=== PATIENT | male | born 1965 | race Two or more races ===

== ENCOUNTER 2020-09-19 15:20 | Emergency (ER) | payer MEDICARE ==
[2020-09-19] MEDS ORDERED: NORMAL SALINE 1000 ML 1,000 ML IV ONE ×2 (16:40→18:02)
[2020-09-19 18:19] LABS: ALBUMIN 4.4 g/dL (3.5-5.0); ALKALINE PHOSPHATASE 83 U/L (38-126); ANION GAP 15 (5-19); ASPARTATE AMINO TRANSFERASE 28 U/L (17-59); BILIRUBIN,DIRECT 0.3 mg/dL (0.0-0.4); BILIRUBIN,TOTAL 0.6 mg/dL (0.2-1.3); BLOOD UREA NITROGEN 17 mg/dL (7-20); CALCIUM 9.6 mg/dL (8.4-10.2); CARBON DIOXIDE 23 mmol/L (22-30); CHLORIDE 99 mmol/L (98-107); GLUCOSE 279 mg/dL (75-110); POTASSIUM 4.1 mmol/L (3.6-5.0); TOTAL PROTEIN 7.6 g/dL (6.3-8.2)
[2020-09-19 18:20] LABS: ACETAMINOPHEN < 10 ug/mL (10-30); ALCOHOL < 10 mg/dL (NONE DETECTED); SALICYLATE < 1.0 mg/dL (2.0-20.0)
[2020-09-19 18:26] LABS: HEMATOCRIT 45.8 % (37.9-51.0); HEMOGLOBIN 15.7 g/dL (13.5-17.0); MEAN CORPUSCULAR HEMOGLOBIN 28.6 pg (27.0-33.4); MEAN CORPUSCULAR HGB CONC 34.3 g/dL (32.0-36.0); MEAN CORPUSCULAR VOLUME 84 fl (80-97); PLATELET COUNT 353 10^3/uL (150-450); RED BLOOD COUNT 5.49 10^6/uL (4.35-5.55); RED CELL DISTRIBUTION WIDTH 13.9 % (11.5-14.0)
[2020-09-19 18:42] LABS: WHITE BLOOD COUNT 30.2 10^3/uL (4.0-10.5)
[2020-09-19 18:46] LABS: ABSOLUTE LYMPHOCYTES# (MANUAL) 2.1 10^3/uL (0.5-4.7); ABSOLUTE MONOCYTES # (MANUAL) 0.6 10^3/uL (0.1-1.4); BASOPHILS % (MANUAL) 0 % (0-2); EOSINOPHILS % (MANUAL) 0 % (0-6); LYMPHOCYTES % (MANUAL) 7 % (13-45); MONOCYTES % (MANUAL) 2 % (3-13); SEGMENTED NEUTROPHILS % (MAN) 91 % (42-78); TOTAL CELLS COUNTED 100
[2020-09-19 18:47] LABS: PLATELET COMMENT ADEQUATE; PLATELET GIANT PRESENT; PLATELET LARGE PRESENT; RBC MORPHOLOGY COMMENT NORMO-CYTIC/CHROMIC
--- NOTE | 2020-09-19 18:49 | ER Document Report ---
ED General - General Chief Complaint: Accidental Overdose Stated Complaint: POSSIBLE OVERDOSE Time Seen by Provider: 09/19/20 16:38 Primary Care Provider: PATRICE BERNSTEIN MD [Primary Care Provider] - Follow up as needed - HPI Notes: Patient is a 54-year-old male who presents emergency department for evaluation after an accidental heroin overdose. Patient states that he was on methadone for several years. He was fired from the methadone clinic because his pill counts were off. He wanted to get his Suboxone. He states he remained clear, but because his drug test was negative, he was declined from the Suboxone clinic. He states that intermittently over last several months he has been using heroin. He states he believes this was laced today. He denies any suicidal or homicidal ideation. No visual or auditory hallucination. He does have a mild headache after the administration of Narcan. He received 2 doses IM prior to arrival. He admits to having history of hypertension, states he took himself off the medication as he could not afford the pills or the doctors appointments. - Related Data Allergies/Adverse Reactions: Penicillins Allergy (Mild, Verified 10/31/13 19:40) Past Medical History - General Information source: Patient - Social History Smoking Status: Current Every Day Smoker - Vaping Drug Abuse: Heroin Family History: None, Reviewed & Not Pertinent - Past Medical History Cardiac Medical History: Reports: Hx Hypertension Surgical Hx: Negative - Immunizations Hx Diphtheria, Pertussis, Tetanus Vaccination: Yes Review of Systems - Review of Systems Constitutional: No symptoms reported EENT: No symptoms reported Cardiovascular: No symptoms reported Respiratory: No symptoms reported Gastrointestinal: No symptoms reported Genitourinary: No symptoms reported Musculoskeletal: No symptoms reported Skin: No symptoms reported Neurological/Psychological: See HPI Physical Exam - Vital signs Vitals: Resp BP Pulse Ox 14 127/95 H 94 09/19/20 15:27 09/19/20 15:27 09/19/20 15:27 - Notes Notes: This is a 54-year-old male appears older than his stated age, mild amount of d istress. Vital signs reviewed, please refer to chart. Head is normocephalic, atraumatic. Pupils equal round, reactive to light. Neck is supple without meningismus. Heart is tachycardic with normal S1, S2. Lungs are clear to auscultation bilaterally. Abdomen is soft, nontender, normoactive bowel sounds throughout. Extremities without cyanosis, clubbing. Posterior calves are nontender. Peripheral pulses are equal. Skin is warm and mildly diaphoretic. Patient is awake, alert, neurological exam is nonfocal. Course - Re-evaluation Re-evalutation: 09/19/20 18:47 Patient presents emergency department for evaluation after an apparent overdose. He denies any suicidality. It appears this was accidental. Patient is tachy cardic, given IV fluids. He has no heart failure history. Laboratory investigations as far reveal a significant leukocytosis. I suspect this is just simply secondary to stress, we will have the patient follow this up as an outpatient. He is currently stable, has no complaints. We will continue to monitor. 09/19/20 19:12 Patient still stable. His heart rate has come down to about 106. He says he feels very anxious about confronting his family about his drug use. We talked at length. 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 He is interested in Suboxone or other therapy. I was able to arrange a community housekeeping cleaner referral, emails are being sent by case management, and they will reach out to him regarding his needs and possible further treatment. Otherwise, we discussed his elevated blood glucose as well as his leukocytosis. I explained him that there are multiple possible reasons for this, including the possible at alteration of the illicit drugs, stress, but of course there could be other more long-term issues such as cancer, diabetes, that can contribute to both of these findings. The importance of recheck was stressed to the patient and he voiced understanding. At this point I am still awaiting his urinalysis and tox screen. He is stable. We will continue to monitor. - Vital Signs Vital signs: Temp Pulse Resp BP Pulse Ox 98.5 F 9 L 147/91 H 94 09/19/20 19:35 09/19/20 18:00 09/19/20 19:26 09/19/20 19:26 - Laboratory Results Result Diagrams: 09/19/20 15:32 09/19/20 15:32 Laboratory Results Interpreted: 09/19/20 09/19/20 09/19/20 15:26 15:32 15:32 WBC 30.2 H* Seg Neuts % (Manual) 91 H Lymphocytes % (Manual) 7 L Monocytes % (Manual) 2 L Abs Neuts (Manual) 27.5 H Glucose 279 H POC Glucose 289 H Urine Protein Urine Glucose (UA) Salicylates < 1.0 L Acetaminophen < 10 L 09/19/20 19:10 WBC Seg Neuts % (Manual) Lymphocytes % (Manual) Monocytes % (Manual) Abs Neuts (Manual) Glucose POC Glucose Urine Protein 100 H Urine Glucose (UA) 150 H Salicylates Acetaminophen Critical Laboratory Results Reviewed: Yes Attending or Supervising Physician who Reviewed Labs: SHIV MULLINS - Radiology Results Critical Radiology Results Reviewed: No Critical Results - EKG Interpretation by Me Additional EKG results interpreted by me: 09/19/20 20:23 Sinus tachycardia with a rate of 114 bpm. Normal axis and intervals. No acute ST changes concerning for ischemia or infarction. No studies immediately available for comparison. Discharge - Discharge Clinical Impression: Hyperglycemia, unspecified Leukocytosis Qualifiers: Leukocytosis type: unspecified Qualified Code(s): D72.829 - Elevated white blood cell count, unspecified Opiate overdose Qualifiers: Encounter type: initial encounter Injury intent: accidental or unintentional Qualified Code(s): T40.601A - Poisoning by unspecified narcotics, accidental (unintentional), initial encounter Condition: Stable Disposition: HOME, SELF-CARE Instructions: Narcotic Abuse ([facility]) Additional Instructions: You will be contacted by the community housekeeping cleaner referral system for further treatment and evaluation. Please abstain from using drugs. As discussed, your blood sugar and your white blood cell counts were very high. This should be checked again by your primary care provider, preferably within the next 1 to 2 weeks. Return to the emergency department with worsening or new concerning symptoms of any sort. Referrals: PATRICE BERNSTEIN MD [Primary Care Provider] - Follow up as needed
[2020-09-19 19:55] LABS: APPEARANCE,URINE SLIGHTLY-CLOUDY; BILIRUBIN,URINE NEGATIVE (NEGATIVE); COLOR,URINE YELLOW; GLUCOSE, URINE 150 mg/dL (NEGATIVE); KETONES,URINE NEGATIVE (NEGATIVE); LEUKOCYTE ESTERASE,URINE NEGATIVE (NEGATIVE); NITRITE,URINE NEGATIVE (NEGATIVE); PROTEIN,URINE 100 mg/dL (NEGATIVE); URINE SPECIFIC GRAVITY 1.017; UROBILINOGEN,URINE NEGATIVE mg/dL (<2.0)
[2020-09-19 20:05] LABS: URINE BARBITURATES SCREEN NEGATIVE; URINE BENZODIAZEPINES SCREEN NEGATIVE; URINE COCAINE SCREEN NEGATIVE; URINE MARIJUANA (THC) SCREEN NEGATIVE; URINE METHADONE SCREEN NEGATIVE; URINE PHENCYCLIDINE SCREEN NEGATIVE
[2020-09-19 20:37] VITALS: BP 137/95
--- NOTE | 2020-09-19 21:58 | EKG REPORT ---
SEVERITY:- ABNORMAL ECG - SINUS TACHYCARDIA INFERIOR INFARCT, OLD : Confirmed by: Paz Carreon MD 19-Sep-2020 21:57:48
[2020-09-21 11:26] LABS: PATH REVIEW PATHOLOGIST REVIEWED
== END 2020-09-19 20:54 | disposition home or self-care (01) ==
LOC: ER 15:20
DX: T40.1X1A Poisoning by heroin, accidental (unintentional), initial encounter (principal); G44.40 Drug-induced headache, not elsewhere classified, not intractable; T50.7X5A Adverse effect of analeptics and opioid receptor antagonists, initial encounter; I10 Essential (primary) hypertension; T50.906A Underdosing of unspecified drugs, medicaments and biological substances, initial encounter; Z91.120 Patient's intentional underdosing of medication regimen due to financial hardship; Z91.14 Patient's other noncompliance with medication regimen; D72.829 Elevated white blood cell count, unspecified; R73.9 Hyperglycemia, unspecified; R00.0 Tachycardia, unspecified; F17.290 Nicotine dependence, other tobacco product, uncomplicated; Z88.0 Allergy status to penicillin
CPT/HCPCS: 93005; 99284; 96360; 96361; 36415; 82962; 80307 ×4; 85025; 80053; 81001; 93010; J7030